=== PATIENT | male | born 1975 | race Caucasian/White ===

== ENCOUNTER → 2017-09-20 | Outpatient (CLI) | payer BC ==
[~2017-09-20] MED LIST: ALBU17AE23; OMEP20CA6; WARF3TAB7
--- NOTE | 2017-09-20 11:16 | Diagnostic Imaging Report ---
INDICATION: Cough. FINDINGS: There is thickening of the central airways as well as some partial atelectasis in the patient's right upper lobe. Patchy infiltrates in the right infrahilar lower lobe as well as mild left basilar infiltrate are also present, pneumonia is suspected. IMPRESSION: There is some airway thickening and changes of reactive airway disease as well as partial atelectasis. In addition, airspace disease is suspected at the levels of the left lower lobe, right lower lobe, and likely perihilar upper lobe. Pneumonia is suspected at those sites. No effusion. Dictated by: Dictated on workstation # [id number]
== END ==
LOC: RAD 08:42
PROVIDERS: ATTEND Nurse Practitioner Family
DX: J45.998 Other asthma (principal); J98.11 Atelectasis
CPT/HCPCS: 71046

== ENCOUNTER 2017-11-02 19:58 | Outpatient (CLI) | payer BC | END 2017-11-03 06:15 | disposition home or self-care (01) | LOC: SLEEP 19:58 | PROVIDERS: ATTEND Internal Medicine | DX: G47.33 Obstructive sleep apnea (adult) (pediatric) (principal) | CPT/HCPCS: 95810 ==

== ENCOUNTER → 2019-08-09 | Outpatient (CLI) | payer BC ==
--- NOTE | 2019-08-09 13:45 | Diagnostic Imaging Report ---
PROCEDURE: US Scrotum. TECHNIQUE: Multiple real-time grayscale images were obtained over the scrotum in various projections bilaterally. INDICATION: Right testicular lump. FINDINGS: Right testicle measures 5.1 x 2 x 3.2 cm. Left testicle measures 4.5 x 2.5 x 3.4 cm. There are no testicular masses. There is normal blood flow to both testes. Small bilateral hydroceles. The epididymides appear normal. No varicoceles. IMPRESSION: 1. No testicular or epididymal masses. 2. Small bilateral hydroceles. Dictated by: Dictated on workstation # [id number]
== END ==
LOC: RAD 12:23
PROVIDERS: ATTEND Internal Medicine
DX: N44.2 Benign cyst of testis (principal); N43.3 Hydrocele, unspecified
CPT/HCPCS: 76870

== ENCOUNTER 2021-09-06 16:07 | Emergency (ER) | payer BC ==
[~2021-09-06] VITALS: Ht 180 cm; Wt 131.0 kg
[2021-09-06 16:20] VITALS: BP 138/90
[2021-09-06] MEDS ORDERED: KETOROLAC 60 MG/2 ML VIAL IM ONE (16:30)
--- NOTE | 2021-09-06 16:33 | ED Lower Extremity ---
General Chief Complaint: Lower Extremity Stated Complaint: FELL OF SLEED AND FELL OFF HIT R ANKLE Source: patient, family (Daughter) Exam Limitations: no limitations History of Present Illness Date Seen by Provider: Sep 06, 2021 Time Seen by Provider: 16:16 Initial Comments Patient to the ER by private conveyance with his daughter and chief complaint that about an hour prior to arrival he was pulling a sled behind a 4 rosales and decided to get on the sled standing up. He fell off and the sled shot forward striking him in the back of his right Achilles tendon. He is now unable to bear any weight on it and has tremendous pain 8 out of 10 at worst. No prior injury fracture or surgeries on his right lower extremity. He is right-handed. He has not taken anything for pain or use any ice yet. The swelling is such that he cannot get his boot off. Allergies and Home Medications Allergies Coded Allergies: Penicillins (Unverified Allergy, Mild, 09/10/09) Patient Home Medication List Home Medication List Reviewed: Yes Albuterol (Ventolin) 17 Gm Aerosol, (Reported) Entered as Reported by: BUCK JACKSON on 09/10/09 1437 Naproxen (Naprosyn) 500 Mg Tablet, 500 MG PO BID Prescribed by: INDIA ALCALA on 09/06/21 1641 Omeprazole (Prilosec) 20 Mg Capsule., (Reported) Entered as Reported by: BUCK JACKSON on 09/10/09 1437 Warfarin Sodium (Jantoven) 3 Mg Tablet, (Reported) Entered as Reported by: BUCK JACKSON on 09/10/09 1437 Review of Systems Constitutional: No chills, No diaphoresis EENTM: No ear discharge, No ear pain Respiratory: No cough, No short of breath Cardiovascular: No chest pain, No palpitations Gastrointestinal: No abdominal pain, No nausea, No vomiting Genitourinary: No discharge, No dysuria Musculoskeletal: No back pain, No joint pain All Other Systems Reviewed Negative Unless Noted: Yes Past Urjpnah-Rnatak-Tbiakb Hx Patient Social History Tobacco Use?: No Use of E-Cig and/or Vaping dev: No Substance use?: No Physical Exam Vital Signs Vital Signs - First Documented 09/06/21 16:20 Temp 36.2 Pulse 97 Resp 18 B/P (MAP) 138/90 (106) Pulse Ox 97 Capillary Refill : Height, Weight, BMI Height: 6'0.00" Weight: 280lbs. oz. 127.364394ou; 37.97 BMI Method: General Appearance: WD/WN, moderate distress HEENT: PERRL/EOMI, normal ENT inspection, pharynx normal Neck: full range of motion, supple, normal inspection Cardiovascular: normal peripheral pulses, regular rate, rhythm Respiratory: no respiratory distress, no accessory muscle use Gastrointestinal: normal bowel sounds, non tender Ankles: bilateral ankle non-tender, bilateral ankle normal inspection, bilateral ankle normal range of motion, bilateral ankle no evidence of injury, bilateral ankle other (Bilateral malleoli on the right ankle posteriorly are nontender however the Achilles tendon is exquisitely tender to touch and Churchill test fails to plantarflex the right foot.) Neurologic/Psychiatric: alert, normal mood/affect, oriented x 3 Skin: normal color, warm/dry Progress/Results/Core Measures Results/Orders My Orders Orders - INDIA ALCALA Ketorolac Injection (Toradol Injection) (09/06/21 16:30) Ankle, Right, 3 Views (09/06/21 16:27) Rx-Hydrocodone/Apap 5-325 Mg (Rx-Vicodin (09/06/21 17:15) Medications Given in ED Current Medications Medications Dose Ordered Sig/Cindy Route Start Time Stop Time Status Last Admin Dose Admin Ketorolac Tromethamine 60 mg ONCE ONCE IM 09/06/21 16:30 09/06/21 16:31 DC 09/06/21 16:45 60 MG Vital Signs/I&O 09/06/21 16:20 Temp 36.2 Pulse 97 Resp 18 B/P (MAP) 138/90 (106) Pulse Ox 97 Progress Progress Note #1: Time: 16:37 Progress Note Concern for complete tendon rupture. We will get an x-ray to rule out fracture. Put him in a orthopedic boot and nonweightbearing with crutches or walker. We will have him follow-up with Dr. Cohn, orthopedic surgeon implementation director. Toradol 60 mg IM. Ice. Rice therapy. Progress Note #2: Time: 17:16 Progress Note Patient states he has had some chronic ankle pain in the same ankle and that may be explained by the lesion seen on x-ray. He has been followed with Dr. Walden in the past for this and would like to follow-up with Dr. Walden again for his tendinopathy. Diagnostic Imaging Diagonstic Imaging: Xray Plain Films/CT/US/NM/MRI: ankle Comments NAME: [facility]END[facility] REC#: [id number] PT STATUS: REG ER : 1975 PHYSICIAN: INDIA ALCALA MD ADMIT DATE: 09/06/21/ER Draft Date of Exam:09/06/21 ANKLE, RIGHT, 3 VIEWS Ankle, right, 3 views. COMPARISON: None available. INDICATION: Right ankle pain. TECHNIQUE: Non-weight bearing AP, oblique and lateral views. FINDINGS: No acute fracture. There is a subchondral lucency in the central aspect of the talar dome indicative of an osteochondral lesion. 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 No mineralized loose bodies are noted. No features of ankle joint effusion. IMPRESSION: 1. No acute osseous abnormality. 2. Osteochondral lesion of the talar dome may be a source of chronic ankle pain. No features of displaced mineralized fragment. Recommend MRI of the ankle on an outpatient/nonemergent basis. 3. Thickening of the Achilles tendon may represent tendinopathy. Dictated on workstation # [id number] Dict: 09/06/21 1659 Trans: 09/06/21 1702 PJE [id number] Interpreted by: DEWEY JOY MD Electronically signed by: Reviewed: Reviewed by Me Departure Impression Primary Impression: Ruptured Achilles tendon due to trauma Qualified Codes: S86.011A - Strain of right Achilles tendon, initial encounter Disposition: 01 HOME, SELF-CARE Condition: Stable Departure-Patient Inst. Decision time for Depature: 16:45 Referrals: ANAYELI COHN MD, WILLIAM J DO (PCP/Family) Primary Care Physician ISABELLA WALDEN MD Patient Instructions: Achilles Tendon Rupture (DC) Add. Discharge Instructions: Do not bear weight on your right foot until you are seen by the surgeon and cleared. Call Dr. Cohn, orthopedic surgeon and request follow-up in the next 1 to 2 days preferably. Tylenol 1000 mg every 8 hours as necessary for pain. Naproxen 500 mg twice a day scheduled for 1 week. Ice 20 minutes on every 2 hours while awake for the first 3 days. Keep your ankle elevated above the level of your heart to reduce swelling. Wear the boot or wrap with an Ayaan wrap for compression to reduce swelling and pain. After the first 3 days you can start using heat for pain control. Topical creams such as icy hot or Biofreeze may also be beneficial for pain control. All discharge instructions reviewed with patient and/or family. Voiced understanding. Scripts Naproxen (Naprosyn) 500 Mg Tablet 500 MG PO BID for 10 Days, #20 TAB 0 Refills Prov: INDIA ALCALA 09/06/21 Work/School Note: Work Release Form Date Seen in the Emergency Department: Sep 06, 2021 Return to Work: Sep 14, 2021 Restrictions: Need Release from Doctor Other Restrictions Listed Below: Nonweightbearing right leg until released by orthopedic surgeon. Copy Copies To 1: ANAYELI COHN MD; ISABELLA WALDEN MD, TITUS J Sep 06, 2021 16:33
[2021-09-06] MEDS ORDERED: NAPR-1071 PO (16:41)
--- NOTE | 2021-09-06 17:03 | Diagnostic Imaging Report ---
Ankle, right, 3 views. COMPARISON: None available. INDICATION: Right ankle pain. TECHNIQUE: Non-weight bearing AP, oblique and lateral views. FINDINGS: No acute fracture. There is a subchondral lucency in the central aspect of the talar dome indicative of an osteochondral lesion. 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 No mineralized loose bodies are noted. No features of ankle joint effusion. IMPRESSION: 1. No acute osseous abnormality. 2. Osteochondral lesion of the talar dome may be a source of chronic ankle pain. No features of displaced mineralized fragment. Recommend MRI of the ankle on an outpatient/nonemergent basis. 3. Thickening of the Achilles tendon may represent tendinopathy. Dictated by: Dictated on workstation # [id number]
== END 2021-09-06 17:22 | disposition home or self-care (01) ==
LOC: EDUNIT# 16:07 → ER 16:11
DX: S86.011A Strain of right Achilles tendon, initial encounter (principal); Z79.01 Long term (current) use of anticoagulants; W22.8XXA Striking against or struck by other objects, initial encounter
CPT/HCPCS: 73610; 99282; L2114; 99281

== ENCOUNTER → 2022-01-22 | Outpatient (CLI) | payer BC ==
[~2022-01-22] VITALS: Ht 180 cm; Wt 132.0 kg
[~2022-01-22] MED LIST changes: +CATHETER FLUSH 10 ML SYR IVP PRN; +NAPR-1071 PO; +REGADENOSON 0.4 MG/5 ML SYR (LEXISCAN) IV ONE
[2022-01-22 08:02] VITALS: BP 150/107
--- NOTE | 2022-01-22 10:23 | Cardiology Stress Test Report ---
Stress Test Report Date of Procedure/Referring: Date of Procedure: Jan 22, 2022 PCP Minerva Goldstein DO Admitting Physician Admitting Physician: Attending Physician: Minerva Goldstein DO Indications: Malaise Baseline Vital Signs Vital Signs Date Time Temp Pulse Resp B/P (MAP) Pulse Ox O2 Delivery O2 Flow Rate FiO2 01/22/22 08:02 73 150/107 (121) Summary: Patient receive a resting and stress dose of Myoview, images were acquired and reviewed in the short axis view, horizontal long axis view and vertical long axis view. TID: 1.03 SSS: 1 SDS: 1 EF: 50 1. No significant ischemia or infarction on SPECT images 2. Normal left ventricular size, ejection fraction 50% Copy Copies To 1: MINERVA GOLDSTEIN BASHAR J MD Jan 22, 2022 10:22
== END ==
LOC: CARD 07:15
PROVIDERS: ATTEND Internal Medicine
DX: R53.83 Other fatigue (principal)
CPT/HCPCS: 78452; 93017; A9502